=== PATIENT | male | born 1985 | race Caucasian/White ===

== ENCOUNTER 2022-08-29 16:03 | Emergency (ER) | payer MEDICAID ==
[~2022-08-29] VITALS: Ht 182.9 cm; Wt 96.2 kg
[2022-08-29 16:50] VITALS: BP 178/89
--- NOTE | 2022-08-29 17:05 | NUR ---
BIB SELF C/O HEMATURIA, LOWER BACK PAIN X TODAY. PMH: R UPPER LEG FRACTURE & SUGERY 2 MONTHS AGO
[2022-08-29 17:27] LABS: APPEARANCE,URINE CLEAR (CLEAR); BILIRUBIN,URINE NEGATIVE (NEGATIVE); BLOOD, URINE 3+ (NEGATIVE); COLOR,URINE YELLOW (YELLOW); LEUKOCYTE ESTERASE ,URINE NEGATIVE (NEGATIVE); NITRITE, URINE NEGATIVE (NEGATIVE); PH,URINE 7.5 (5.0-9.0); UGLUCOSE NEGATIVE (NEGATIVE)
[2022-08-29 17:49] LABS: OTHER CASTS, URINE None Seen /LPF (None Seen); RBC,URINE 11-20 (MOD) /HPF (0-5); WBC,URINE 0-5 /HPF (0-5)
[2022-08-29] MEDS ORDERED: CEPH-588 PO (18:10)
--- NOTE | 2022-08-29 18:27 | NUR ---
Patient discharged with v/s stable. Written and verbal after care instructions ABOUT UTI given and explained. Patient alert, oriented and verbalized understanding of instructions. Ambulatory with steady gait. All questions addressed prior to discharge. ID band removed. Patient advised to follow up with PMD. Rx of KEFLEX given. Patient educated on indication of medication including possible reaction and side effects. Opportunity to ask questions provided and answered.
== END 2022-08-29 18:27 | disposition home or self-care (01) ==
LOC: MED 16:03
DX: N39.0 Urinary tract infection, site not specified (principal); I10 Essential (primary) hypertension; Z79.899 Other long term (current) drug therapy
CPT/HCPCS: 81001; 87086; 87491; 99283